=== PATIENT | male | born 1950 | race Caucasian/White ===

== ENCOUNTER 2019-05-07 07:48 | Outpatient (RCR) | payer MEDICARE, OTHER, SELFPAY ==
--- NOTE | 2019-05-07 14:29 | HP.SP.AD ---
History - History Date of Eval: 05/07/19 Medical Diagnosis (from RX): Brain Tumor Date of Onset of Diagnosis: 04/15/19 Previous speech therapy: No Other Relevant Medical History/Diagnoses/Surgery: Glioblastoma, pulmonary embolism. Smoking Status: Former smoker Hx Smoking: No Hx Tobacco Use: No - Pain Is pain an issue with your current prescribed condition?: No - Personal Education History: Masters Degree. Occupation: Retired. Right Hearing Abillity: Normal Left Hearing Abillity: Normal Visual Assistive Devices: Glasses Patients Living Arrangements: With Significant Other Patient Allergies - Allergies Allergies No Known Allergies Allergy (Verified 03/13/17 04:29) Subjective Oral Motor - Subjective Facial Drooping: Left - Comments Comments: Mild left droop with reporting the facial droop is in the last three weeks. Objective Oral Motor - Oral Status Dentition: WNL Additional: one missing. - Labial Impairment: WNL Closure: WNL Pucker: WNL Retraction: WNL Alternating Pucker/Retraction: WNL Involuntary Movement noted: No - Lingual Impairment: WNL Protrusion: WNL Retraction: WNL Lateralization: WNL Involuntary Movement: No - Jaw Impairment: WNL - Respiratory Status Respiratory Status: Room Air Subjective Dysphagia - Symptoms Reported Symptoms/Problems with: Coughing, Choking, Difficulty Swallowing Solids, Difficulty Swallowing Liquids - Current Diet Solids Current Diet: Regular - Current Diet Liquids Current Liquids: Thin Objective Dysphagia - Administered by Administered by: Self - Thin Liquids Administred via: Cup Symptoms: Throat Clearing, Delayed Laryngeal Elevation: WFL Oral Holding: No - states that he does hold occasionally Gagging: No - [place] Thickened Liquids Administered via: Cup Symptoms: Throat Clearing, Delayed Gagging: No - Regular Laryngeal Elevation: WFL Oral Holding: No Gagging: No - Results Swallowing Within Normal Limits: No Swallowing Diagnosis: Oropharyngeal Phase Dysphagia, Other Dysphagia Additional: suspected pharyngeal dysphagia Dysphagia Assessment - Swallowing Impairment Contributing Factors to Swallowing Impairment: Reduced Alertness or Attention, Impaired Oral-Pharyngeal Transport - Recommendations Modified Barium Swallow/Cookie Swallow Recommended: Yes Swallowing Treatment: Yes - Diet Texture Recommendations Solids Other: Regular Liquids: Thin - Safety Saftey Precautions/Swallowing Recommendations (Check all that Apply): 1 to 1 Distant Supervision, Upright Position at Least 30 Minutes After Meals, Small Sips & Bites when Eating, Sips by Straw Only Plan - Plan Plan: Speech therapy is recommended for dysphagia due to complications from glioblastoma. Therapy will be completed on an outpatient basis unless the patient is deemed homebound and can complete therapy at home. - Recommendations MBS: Yes Treatment Warranted: Yes - Frequency Frequency: 1x/Week Duration: 6 Weeks Visits in this POC: 7 - Prognosis Prognosis: Fair - Goals that are Established: Determination:: Goals will be added/modified as deemed necessary and appropriate. Therapy will be discontinued when results of re-evaluation indicate therapy is no longer needed or lack of progress has been documented. - Goal #1-5 Goal #1: The Patient will tolerate the least restrictive means of nutrition to facilitate adequate hydration/nutrition with optimum safety and efficiency of swallowing function during P.O. intake without overt signs and symptoms of aspiration. Goal #2: The Patient will demonstrate and utilize recommended velopharyngeal and oropharyngeal strengthening exercises to facilitate improved velopharyngeal and oropharyngeal strength and coordination with minimal cueing and prompting provide by the clinician, across 3 to 3 sessions. Goal #3: Pt will participate in completion of modified barium swallow study. Education - Patient has Indicated that the Following Identified Educational Needs: None The Patient has indicated that they have no educational or learning abilities that may effect their care.: Yes - Patient Instruction Patient Education: Diagnosis, Treatment Plan, Goals, Diet Level Person Taught: Patient, Significant Other Teaching Method: Discussion Response to teaching: Verbalize understanding
--- NOTE | 2019-07-03 13:21 | HP.SP.DC ---
ST Discharge Summary - Discharged: Discharge: Michoacano Villar is discharged from speech therapy as of July 03, 2019. He was evaluated on 05/07/19 for dysphagia from glioblastoma. No further visits were scheduled, and the patient cancelled his modified barium swallow study. His stated in the evaluation that home therapies were evaluating him and if they did not see him then she would return to this therapist. no visits have been scheduled, he is discharged. A copy of this discharge will be sent to his referring physician.
== END 2019-05-07 19:00 | disposition home or self-care (01) ==
LOC: SP 07:48
PROVIDERS: Family Provider Family Medicine; PCP Family Medicine
DX: C71.2 Malignant neoplasm of temporal lobe (principal); R47.81 Slurred speech
CPT/HCPCS: 92610